=== PATIENT | female | born 1995 | race Hispanic/Latino ===

== ENCOUNTER 2020-07-18 10:17 | Emergency (ER) | payer SELFPAY ==
[~2020-07-18] VITALS: Ht 160 cm; Wt 77.1 kg
[2020-07-18] MEDS ORDERED: MORPHINE SULFATE 5 MG/ML VIAL IM ONE (10:30)
[2020-07-18] MEDS ORDERED: MORPHINE SULFATE INJ 4 MG/ML INJ 1ML ONE (11:17)
[2020-07-18] MEDS ORDERED: NAPROSYN500 MG PO (11:27)
== END 2020-07-18 11:40 | disposition home or self-care (01) ==
LOC: FSED 10:32
DX: S03.00XA Dislocation of jaw, unspecified side, initial encounter (principal)
CPT/HCPCS: 99282; J2270

== ENCOUNTER → 2020-10-21 | Outpatient (CLI) | payer OTHER ==
[~2020-10-21] MED LIST: NAPROSYN500 MG PO
== END ==
LOC: MRI 13:00
PROVIDERS: ATTEND Physician Assistant
DX: S89.91XA Unspecified injury of right lower leg, initial encounter (principal); S83.411A Sprain of medial collateral ligament of right knee, initial encounter; M23.91 Unspecified internal derangement of right knee